=== PATIENT | female | born 1965 | race Caucasian/White ===

== ENCOUNTER → 2016-08-29 | Outpatient (CLI) | payer OTHER | LOC: EMI 14:15 | DX: M48.06 Spinal stenosis, lumbar region (principal); M51.37 Other intervertebral disc degeneration, lumbosacral region | CPT/HCPCS: 72148 ==

== ENCOUNTER → 2020-07-10 | Outpatient (CLI) | payer OTHER ==
[~2020-07-10] MED LIST: ASPIRIN 325MG325 MG PO; ATORVASTATIN CA40 MG PO; CLEOCIN HCL300 MG PO; DRIZALMA SPRINK40 MG PO; DULOXETINE HCL20 MG PO; FUROSEMIDE20 MG PO; HYDROCODON-ACE1 EAC6 PO; IBU800 MG PO; IBUPROFEN800 MG PO; LEVOTHYROXINE175 MCG PO; METHOCARBAMOL750 MG PO; METOPROLOL SUCC50 MG PO; ONDANSETRON HCL8 MG PO; PERCOCET 10-321 EACH PO; POTABA500 MG PO; PREGABALIN150 MG PO; PREMARIN0.625 MG PO; PROTONIX 40 MG40 M1 PO; SKELAXIN800 MG PO; ULTRAM50 MG PO; VENTOLIN HFA 66.7 GM INH; VITAMIN C500 MG PO; VITAMIN D21250 MCG PO; VITAMIN D31250 MCG PO; VOLTAREN ARTHRI20 GM TP; VRAYLAR1.5 MG PO; WELLBUTRIN XL300 M1 PO; ZOFRAN ODT 4 MG4 MG SL
== END ==
LOC: KOH-I 10:14
DX: S92.311D Displaced fracture of first metatarsal bone, right foot, subsequent encounter for fracture with routine healing (principal); S93.331D Other subluxation of right foot, subsequent encounter; S93.334 Other dislocation of right foot; X58.XXXD Exposure to other specified factors, subsequent encounter
CPT/HCPCS: 73630

== ENCOUNTER → 2020-07-26 | Outpatient (CLI) | payer OTHER | LOC: KOH-I 09:30 | DX: M25.374 Other instability, right foot (principal); S63.101A Unspecified subluxation of right thumb, initial encounter; Z98.890 Other specified postprocedural states; X58.XXXA Exposure to other specified factors, initial encounter | CPT/HCPCS: 73700 ==

== ENCOUNTER → 2020-08-10 | Outpatient (CLI) | payer OTHER ==
[2020-08-10 12:31] LABS: HEMOGLOBIN 13.9 gm/dl (12.3-15.3); RED BLOOD COUNT 4.45 M/UL (4.00-5.10); WHITE BLOOD COUNT 9.1 K/UL (4.5-11.0)
[2020-08-10 12:53] LABS: BUN/CREATININE RATIO 32 (0-10)
== END ==
LOC: OPSV2 11:00
PROVIDERS: Podiatrist Foot & Ankle Surgery
DX: Z01.818 Encounter for other preprocedural examination (principal); S92.311K Displaced fracture of first metatarsal bone, right foot, subsequent encounter for fracture with nonunion; G58.8 Other specified mononeuropathies; Z96.698 Presence of other orthopedic joint implants; X58.XXXD Exposure to other specified factors, subsequent encounter
CPT/HCPCS: 36415; 80048; 85027; 93005

== ENCOUNTER 2020-08-18 08:40 | Observation (INO) | payer OTHER ==
[~2020-08-18] VITALS: Ht 157.5 cm; Wt 100.2 kg
[~2020-08-18 08:40] MED LIST changes: -DRIZALMA SPRINK40 MG PO; -SKELAXIN800 MG PO; -VENTOLIN HFA 66.7 GM INH; -VRAYLAR1.5 MG PO
[2020-08-18] MEDS ORDERED: DRIZALMA SPRINK40 MG PO (10:15)
[2020-08-18] MEDS ORDERED: VRAYLAR1.5 MG PO (10:24)
[2020-08-18] MEDS ORDERED: SKELAXIN800 MG PO (10:27)
[2020-08-18] MEDS ORDERED: VENTOLIN HFA 66.7 GM INH (10:29)
== END 2020-08-19 11:33 | disposition home or self-care (01) ==
LOC: OR 08:40 → MED SURG 4 19:14 → OR 22:18 → MED SURG 4 22:19
PROVIDERS: ADMIT Internal Medicine
DX: T84.84XA Pain due to internal orthopedic prosthetic devices, implants and grafts, initial encounter (principal); M20.31 Hallux varus (acquired), right foot; G31.89 Other specified degenerative diseases of nervous system; E03.9 Hypothyroidism, unspecified; E66.9 Obesity, unspecified; M79.7 Fibromyalgia; I50.9 Heart failure, unspecified; E78.5 Hyperlipidemia, unspecified; M19.90 Unspecified osteoarthritis, unspecified site; G62.9 Polyneuropathy, unspecified; I11.0 Hypertensive heart disease with heart failure; Z88.0 Allergy status to penicillin; Z88.5 Allergy status to narcotic agent; Z88.8 Allergy status to other drugs, medicaments and biological substances; Z91.040 Latex allergy status
CPT/HCPCS: 73630; 76000; 96372; C1713; C1762; C1776; G0378; J0690; J1100; J1650; J1885; J2250; J2370; J2405; J2704; J2795; J3010; J3370; J7030; J7040; J7120; Q4133

== ENCOUNTER → 2020-08-24 | Outpatient (CLI) | payer OTHER ==
[~2020-08-24] MED LIST changes: +DRIZALMA SPRINK40 MG PO; +SKELAXIN800 MG PO; +VENTOLIN HFA 66.7 GM INH; +VRAYLAR1.5 MG PO
== END ==
LOC: KOH-I 14:53
DX: S92.201 Fracture of unspecified tarsal bone(s) of right foot (principal)
CPT/HCPCS: 73630

== ENCOUNTER → 2020-09-14 | Outpatient (CLI) | payer OTHER | LOC: KOH-I 15:59 | DX: S92.311K Displaced fracture of first metatarsal bone, right foot, subsequent encounter for fracture with nonunion (principal) | CPT/HCPCS: 73630 ==

== ENCOUNTER → 2020-10-02 | Outpatient (CLI) | payer OTHER | LOC: KOH-I 15:50 | DX: M79.671 Pain in right foot (principal); Z98.1 Arthrodesis status | CPT/HCPCS: 73630 ==

== ENCOUNTER → 2020-10-26 | Outpatient (CLI) | payer OTHER | LOC: KOH-I 15:30 | DX: M79.674 Pain in right toe(s) (principal); Z96.698 Presence of other orthopedic joint implants; M79.89 Other specified soft tissue disorders | CPT/HCPCS: 73630 ==

== ENCOUNTER → 2020-12-29 | Outpatient (CLI) | payer OTHER | LOC: KOH-I 16:13 | DX: R22.41 Localized swelling, mass and lump, right lower limb (principal); M72.2 Plantar fascial fibromatosis; M89.8X7 Other specified disorders of bone, ankle and foot; Z96.698 Presence of other orthopedic joint implants | CPT/HCPCS: 73718 ==

== ENCOUNTER → 2021-03-01 | Outpatient (CLI) | payer OTHER ==
[2021-03-01 14:32] LABS: BUN/CREATININE RATIO 21 (0-10)
[2021-03-02 11:14] LABS: COMPLEMENT C3, SERUM 165 mg/dL (82-167); COMPLEMENT C4, SERUM 30 mg/dL (12-38)
[2021-03-02 12:14] LABS: ANTI-DSDNA ANTIBODIES 1 IU/mL (0-9); ANTICHROMATIN ANTIBODIES <0.2 AI (0.0-0.9); ANTISTREPTOLYSIN O AB 200.3 IU/mL (0.0-200.0); RHEUMATOID ARTHRITIS FACTOR <10.0 IU/mL (0.0-13.9)
== END ==
LOC: LAB 12:09
PROVIDERS: Nurse Practitioner Family
DX: M12.9 Arthropathy, unspecified (principal); R52 Pain, unspecified
CPT/HCPCS: 36415; 80053; 81374; 84550; 85652; 86038; 86060; 86140; 86160; 86200; 86225; 86431

== ENCOUNTER → 2021-03-20 | Outpatient (CLI) | payer OTHER | LOC: KOH-I 10:31 | DX: M25.571 Pain in right ankle and joints of right foot (principal); M79.671 Pain in right foot | CPT/HCPCS: 73610; 73630 ==

== ENCOUNTER → 2021-04-04 | Outpatient (CLI) | payer OTHER | LOC: KOH-I 14:51 | DX: T85.698A Other mechanical complication of other specified internal prosthetic devices, implants and grafts, initial encounter (principal); M20.61 Acquired deformities of toe(s), unspecified, right foot; M77.41 Metatarsalgia, right foot; S92.131A Displaced fracture of posterior process of right talus, initial encounter for closed fracture | CPT/HCPCS: 73700 ==

== ENCOUNTER → 2021-05-10 | Outpatient (CLI) | payer OTHER | LOC: KOH-I 14:36 | DX: S92.191D Other fracture of right talus, subsequent encounter for fracture with routine healing (principal); S93.149D Subluxation of metatarsophalangeal joint of unspecified toe(s), subsequent encounter | CPT/HCPCS: 73610; 73630 ==

== ENCOUNTER → 2021-06-19 | Outpatient (CLI) | payer OTHER | LOC: KOH-I 15:17 | DX: M79.671 Pain in right foot (principal) | CPT/HCPCS: 73630 ==

== ENCOUNTER → 2021-07-23 | Outpatient (CLI) | payer OTHER ==
[~2021-07-23] MED LIST changes: +ALLEGRA ALLERG180 MG PO; +CELEBREX200 MG PO; +CYMBALTA60 MG PO; +DICLOFENAC SOD100 GM TOP; +DIFLUCAN150 MG PO; +FLONASE 0.05% N16 GM; +LAMOTRIGINE150 MG PO; +LIDOCAINE-PRILOC5 GM TP; +NICOTINE PATCH1 EAC1 TOP; +OXYCODON-ACETA1 EAC1 PO; +PERCOCET 5/325 T1 EA PO; +PLAQUENIL 200200 MG PO; +POTASSIUM CHLO20 ME1 PO; +ROBAXIN 750 MG750 MG PO; +ROPINIROLE HCL5 MG PO; -VRAYLAR1.5 MG PO; +VRAYLAR3 MG PO
== END ==
LOC: OPSV2 12:30
DX: Z01.810 Encounter for preprocedural cardiovascular examination (principal)
CPT/HCPCS: 93005

== ENCOUNTER 2021-07-25 08:43 | Observation (INO) | payer OTHER ==
[~2021-07-25] VITALS: Ht 157.5 cm; Wt 103.9 kg
[~2021-07-25 08:43] MED LIST changes: -DIFLUCAN150 MG PO; -NICOTINE PATCH1 EAC1 TOP; -OXYCODON-ACETA1 EAC1 PO; -PERCOCET 5/325 T1 EA PO
[2021-07-26 07:06] LABS: RED BLOOD COUNT 3.51 M/UL (4.00-5.10); WHITE BLOOD COUNT 13.4 K/UL (4.5-11.0)
[2021-07-26 07:26] LABS: BUN/CREATININE RATIO 17 (0-10)
--- NOTE | 2021-07-26 19:26 | NUR ---
patient was given DAYO hose because both shifts have been unable to locate hoses for [facility] pumps.
[2021-07-27 04:24] LABS: HEMOGLOBIN 10.9 gm/dl (12.3-15.3); RED BLOOD COUNT 3.46 M/UL (4.00-5.10); WHITE BLOOD COUNT 10.5 K/UL (4.5-11.0)
[2021-07-27 04:52] LABS: BUN/CREATININE RATIO 17 (0-10)
[2021-07-28 03:37] LABS: HEMOGLOBIN 11.9 gm/dl (12.3-15.3)
[2021-07-28 03:39] LABS: RED BLOOD COUNT 3.81 M/UL (4.00-5.10)
[2021-07-28] MEDS ORDERED: CLEOCIN HCL300 MG PO (10:37)
[2021-07-28] MEDS ORDERED: NICOTINE PATCH1 EAC1 TOP (10:37)
[2021-07-28] MEDS ORDERED: FUROSEMIDE20 MG PO (10:38)
[2021-07-28] MEDS ORDERED: DIFLUCAN150 MG PO (10:39)
[2021-07-28] MEDS ORDERED: PERCOCET 5/325 T1 EA PO (10:40)
[2021-07-28] MEDS ORDERED: OXYCODON-ACETA1 EAC1 PO (10:43)
== END 2021-07-28 14:15 | disposition home or self-care (01) ==
LOC: OR 08:43 → M/S 08:43 → OR 09:15 → M/S 20:26 → OR 20:26 → M/S 07-26 14:03
PROVIDERS: Internal Medicine; Podiatrist Foot & Ankle Surgery; ADMIT Internal Medicine
DX: M21.961 Unspecified acquired deformity of right lower leg (principal); M20.31 Hallux varus (acquired), right foot; S92.311K Displaced fracture of first metatarsal bone, right foot, subsequent encounter for fracture with nonunion; S92.151D Displaced avulsion fracture (chip fracture) of right talus, subsequent encounter for fracture with routine healing; S86.311D Strain of muscle(s) and tendon(s) of peroneal muscle group at lower leg level, right leg, subsequent encounter; M25.871 Other specified joint disorders, right ankle and foot; M25.374 Other instability, right foot; M19.071 Primary osteoarthritis, right ankle and foot; I10 Essential (primary) hypertension; E78.5 Hyperlipidemia, unspecified; K21.9 Gastro-esophageal reflux disease without esophagitis; E66.9 Obesity, unspecified; E03.9 Hypothyroidism, unspecified; M79.7 Fibromyalgia; F17.210 Nicotine dependence, cigarettes, uncomplicated; F32.A Depression, unspecified; F41.9 Anxiety disorder, unspecified; Z68.41 Body mass index [BMI] 40.0-44.9, adult; Z88.5 Allergy status to narcotic agent; Z91.040 Latex allergy status; X58.XXXD Exposure to other specified factors, subsequent encounter
CPT/HCPCS: 36415; 73630; 76000; 80048; 80053; 80061; 80202; 83036; 83735; 84100; 85027; 96372; 97116; 97161; 97530; C1713; C1762; G0378; J0171; J0690; J1100; J1170; J1650; J2250; J2270; J2405; J2704; J2795; J3010; J3370; J7070; J7120

== ENCOUNTER → 2021-08-14 | Outpatient (CLI) | payer OTHER ==
[~2021-08-14] MED LIST changes: +DIFLUCAN150 MG PO; +NICOTINE PATCH1 EAC1 TOP; +OXYCODON-ACETA1 EAC1 PO; +PERCOCET 5/325 T1 EA PO
== END ==
LOC: KOH-I 15:45
DX: M79.671 Pain in right foot (principal)
CPT/HCPCS: 73610; 73630

== ENCOUNTER → 2021-08-28 | Outpatient (CLI) | payer OTHER | LOC: KOH-I 15:24 | DX: M79.671 Pain in right foot (principal) | CPT/HCPCS: 73630 ==

== ENCOUNTER → 2021-09-13 | Outpatient (CLI) | payer OTHER | LOC: KOH-I 15:43 | DX: M79.671 Pain in right foot (principal) | CPT/HCPCS: 73630 ==

== ENCOUNTER 2021-09-17 17:36 | Emergency (ER) | payer OTHER ==
[2021-09-17 19:56] LABS: HEMOGLOBIN 9.9 gm/dl (12.3-15.3); RED BLOOD COUNT 3.13 M/UL (4.00-5.10); WHITE BLOOD COUNT 8.2 K/UL (4.5-11.0)
== END 2021-09-18 01:50 | disposition home or self-care (01) ==
LOC: ER1 17:36
PROVIDERS: Physician Assistant
DX: R06.02 Shortness of breath (principal); R07.9 Chest pain, unspecified; I11.0 Hypertensive heart disease with heart failure; F17.210 Nicotine dependence, cigarettes, uncomplicated; Z88.5 Allergy status to narcotic agent
CPT/HCPCS: 71045; 80053; 82550; 82553; 83880; 84484; 85025; 85379; 85610; 85730; 93005; 96374; 99285; J1940; Q9967

== ENCOUNTER → 2021-10-11 | Outpatient (CLI) | payer OTHER | LOC: KOH-I 15:26 | DX: M79.671 Pain in right foot (principal) | CPT/HCPCS: 73630 ==

== ENCOUNTER → 2021-11-01 | Outpatient (CLI) | payer OTHER | LOC: KOH-I 14:44 | DX: M25.571 Pain in right ankle and joints of right foot (principal) | CPT/HCPCS: 73610 ==